=== PATIENT | male | born 1990 | race Caucasian/White ===

== ENCOUNTER 2023-02-04 09:01 | Emergency (ER) | payer BC | END 2023-02-04 09:33 | disposition home or self-care (01) | LOC: LB.ED 09:01 | DX: S93.601A Unspecified sprain of right foot, initial encounter (principal); Z72.0 Tobacco use; X50.1XXA Overexertion from prolonged static or awkward postures, initial encounter | CPT/HCPCS: 73630-RT; 99282; 99283 ==